=== PATIENT | male | born 1985 | race Caucasian/White ===

== ENCOUNTER 2020-04-16 21:47 | Inpatient (IN) | payer OTHER, SELFPAY ==
[2020-04-16 21:49] VITALS: BP 134/97; PULSE 100; RESP 22; TEMP 35.8; O2SAT 97; BMI 28.1
--- NOTE | 2020-04-16 22:17 | ED_ITS ---
HPI - Abdominal Pain General Chief Complaint: Abdominal Pain Stated Complaint: Abdominal Pain Time Seen by Provider: 04/16/20 22:13 History of Present Illness HPI narrative: Patient is a 35-year-old male with a history of pancreatitis secondary to alcohol use. Presents today with having abdominal pain in the epigastric area after drinking alcohol. The pain is similar to previous bouts of pancreatitis. Not associated with any diarrhea. Positive nausea, vomiting. Pain is 8/10. Localized to that area no radiation. No fever no chills. No coughing or congestion upper respiratory symptoms. Patient from home. No NSAID use. Related Data Home Medications Medication Instructions Recorded Confirmed No Known Home Meds 04/16/20 04/16/20 Allergies Allergy/AdvReac Type Severity Reaction Status Date / Time No Known Allergies Allergy Verified 04/16/20 23:20 [No Known Allergies*] Review of Systems Review of Systems Constitutional: No Weight loss, No Fever, No Chills, No Night Sweats, No Fatigue, No Malaise ENT/Mouth: No Hearing loss, No Ear Pain, No Nasal Congestion, No Sinus Pain, No Hoarseness, No sore throat, No Rhinorrhea, No Swallowing Difficulty Eyes: No Eye Pain, No Swelling, No Redness, No Foreign Body, No Discharge, No Vision Changes Cardiovascular: No Chest Pain, No SOB, No Dyspnea on Exertion, No Orthopnea, No Edema, No Palpitations Respiratory: No Cough, No Sputum, No Wheezing, No Smoke Exposure, No Dyspnea Gastrointestinal: Positive Nausea, No Vomiting, No Diarrhea, No Constipation, positive abdominal Pain, No Hematochezia, No Melena Genitourinary: no irregular bleeding, No Dysuria, No Urinary Frequency, No Hematuria, No Urinary Incontinence, No Urgency, No Flank Pain, No Urinary Flow Changes, No Hesitancy Musculoskeletal: No joint pain, No Myalgias, No Joint Swelling Skin: No Skin Lesions, No rash Neuro: No Weakness, No Numbness, No Paresthesias, No Loss of Consciousness, No Dizziness, No Headache Psych: No Anxiety/Panic, No Depression, No SI/HI/AH/VH, No Social Issues, Heme/Lymph: No Bruising, No Bleeding,No Lymphadenopathy Endocrine: No Polyuria, No Polydipsia, No Temperature Intolerance Physical Exam Vital Signs: Vital Signs: Last Vital Signs Temp 96.4 F L 04/16/20 21:49 Pulse 61 04/17/20 00:51 Resp 24 H 04/17/20 00:51 BP 145/99 H 04/17/20 00:51 Pulse Ox 98 04/17/20 00:51 Body Mass Index 28.1 Appearance: Alert. Oriented X3. No acute distress. Eyes: Pupils equal, round and reactive to light. ENT: Pharynx normal. Neck: Normal inspection. Neck supple. No lymph nodes noted. No crepitus CVS: Normal heart rate and rhythm. Pulses normal. Normal S1 and S2 Respiratory: No respiratory distress. Breath sounds normal. No Wheezing. No rales Abdomen: Soft and mild epigastric tenderness no rebound no guarding. No rigidity. No distention. good BS x4 Skin: Skin warm and dry. Normal skin color. Normal skin turgor. Extremities: No lower extremity edema. Neurovascular intact to all extremities. No Lacerations. No Rash Neuro: Oriented X 3. No motor deficit. No sensory deficit. Moving all extermities. No slurred speech MDM - Abdominal Pain MDM Narrative Medical decision making narrative: Patient is 35 years old have history of alcohol induced pancreatitis. Drank alcohol yesterday had abdominal pain. CT scan consistent with having pancreatitis. Patient's lipase is over 400. Given pain medication with moderate relief. Patient did not feel comfortable going home due to the pain. Will admit for further evaluation IV hydration currently in stable condition Differential Diagnosis Differential diagnosis: Likely abdominal pain, aortic dissection, bowel perforation, gastroenteritis and pancreatitis Medical Records Attestation: I reviewed the patient's medical records. Lab Data Attestation: I reviewed the patient's lab results. Result diagrams: 04/16/20 23:09 04/16/20 23:09 Labs: Lab Results 04/16/20 04/16/20 04/16/20 Range/Units 23:09 23:09 23:09 WBC 9.5 (4.8-10.8) X10*3/uL RBC 4.86 (4.60-5.80) X10*6/uL Hgb 15.8 (14.0-18.0) g/dl Hct 46.0 (42-52) % MCV 94.7 (80-98) fL MCH 32.5 (27.0-33.0) pg MCHC 34.3 (31.0-36.0) g/dl RDW 13.2 (11.0-16.0) % Plt Count 277 (160-400) X10*3/uL MPV 9.2 L (9.4-12.4) fL Immature Gran % (Auto) 0.2 (0.0-0.4) % Neut % (Auto) 77.9 H (45-73) % Lymph % (Auto) 12.8 L (20-40) % [place] % (Auto) 7.4 (2-11) % Eos % (Auto) 1.3 (0-4) % Baso % (Auto) 0.4 (0-2) % Lymph # (Auto) 1.2 (1.2-4.9) X10*3/uL [place] # (Auto) 0.7 (0.1-1.2) X10*3/uL Eos # (Auto) 0.1 (0.0-0.4) X10*3/uL Baso # (Auto) 0.0 (0.0-0.2) X10*3/uL Abs Immat Gran (auto) 0.02 (0.00-0.03) X10*3/uL Absolute Neuts (auto) 7.4 (2.0-8.3) X10*3/uL Absolute Nucleated RBC 0.000 (0.0-0.012) X10*3/uL Nucleated RBC % (auto) 0.0 (0.0-0.2) /100WBC Sodium 139 (135-145) mmol/L Potassium 3.4 (3.3-5.1) mmol/l Chloride 99 (96-108) mmol/L Carbon Dioxide 23 (22-29) mmol/L Anion Gap 20 (12-20) BUN 9 (9-16) mg/dL Creatinine 1.17 (0.5-1.4) mg/dL Estim Creat Clear Calc 88.4 Estimated GFR > 60 Random Glucose 134 H (60-115) mg/dL Calcium 9.2 (8.4-10.2) mg/dL Magnesium (1.6-2.6) mg/dL Total Bilirubin 2.0 H (0.0-1.0) mg/dL Direct Bilirubin 1.0 H (0.0-0.5) mg/dL AST 38 H (5-37) U/L ALT 40 (0-40) U/L Alkaline Phosphatase 143 H (39-117) U/L Total Protein 7.5 (6.5-8.0) g/dL Albumin 4.5 (3.5-5.0) g/dL Lipase 438 H (8-78) U/L Ethyl Alcohol < 10 mg/dL 04/16/20 Range/Units 23:09 WBC (4.8-10.8) X10*3/uL RBC (4.60-5.80) X10*6/uL Hgb (14.0-18.0) g/dl Hct (42-52) % MCV (80-98) fL MCH (27.0-33.0) pg MCHC (31.0-36.0) g/dl RDW (11.0-16.0) % Plt Count (160-400) X10*3/uL MPV (9.4-12.4) fL Immature Gran % (Auto) (0.0-0.4) % Neut % (Auto) (45-73) % Lymph % (Auto) (20-40) % [place] % (Auto) (2-11) % Eos % (Auto) (0-4) % Baso % (Auto) (0-2) % Lymph # (Auto) (1.2-4.9) X10*3/uL [place] # (Auto) (0.1-1.2) X10*3/uL Eos # (Auto) (0.0-0.4) X10*3/uL Baso # (Auto) (0.0-0.2) X10*3/uL Abs Immat Gran (auto) (0.00-0.03) X10*3/uL Absolute Neuts (auto) (2.0-8.3) X10*3/uL Absolute Nucleated RBC (0.0-0.012) X10*3/uL Nucleated RBC % (auto) (0.0-0.2) /100WBC Sodium (135-145) mmol/L Potassium (3.3-5.1) mmol/l Chloride (96-108) mmol/L Carbon Dioxide (22-29) mmol/L Anion Gap (12-20) BUN (9-16) mg/dL Creatinine (0.5-1.4) mg/dL Estim Creat Clear Calc Estimated GFR Random Glucose (60-115) mg/dL Calcium 9.3 (8.4-10.2) mg/dL Magnesium 1.8 (1.6-2.6) mg/dL Total Bilirubin (0.0-1.0) mg/dL Direct Bilirubin (0.0-0.5) mg/dL AST (5-37) U/L ALT (0-40) U/L Alkaline Phosphatase (39-117) U/L Total Protein (6.5-8.0) g/dL Albumin (3.5-5.0) g/dL Lipase (8-78) U/L Ethyl Alcohol mg/dL Discharge Plan Discharge Clinical Impression: Pancreatitis Patient Disposition: Admitted As Inpatient Prescriptions: No Action No Known Home Meds RF: 0 PMFSH Past Medical History Attestation statement: The following information was validated with the patient. Medical History Pancreatitis Social History Social History Advance Directives: No Advance Directives Information Provided: No
[2020-04-16 23:15] LABS: Basophils Percent Auto 0.4 % (0-2); Eosinophils Absolute Auto 0.1 X10*3/uL (0.0-0.4); Eosinophils Percent Auto 1.3 % (0-4); Hemoglobin 15.8 g/dl (14.0-18.0); Imm Gran Abs Auto 0.02 X10*3/uL (0.00-0.03); Imm Gran Pct Auto 0.2 % (0.0-0.4); Lymphocytes Absolute Auto 1.2 X10*3/uL (1.2-4.9); Lymphocytes Percent Auto 12.8 % (20-40); MANUAL DIFF FLAG NO; Mean Corpuscular HGB Conc 34.3 g/dl (31.0-36.0); Mean Corpuscular Hemoglobin 32.5 pg (27.0-33.0); Mean Corpuscular Volume 94.7 fL (80-98); Mean Platelet Volume 9.2 fL (9.4-12.4); Monocytes Absolute Auto 0.7 X10*3/uL (0.1-1.2); Monocytes Percent Auto 7.4 % (2-11); Neutrophils Absolute Auto 7.4 X10*3/uL (2.0-8.3); Neutrophils Percent Auto 77.9 % (45-73); Platelet Count 277 X10*3/uL (160-400); Red Blood Count 4.86 X10*6/uL (4.60-5.80); Red Cell Distribution Width 13.2 % (11.0-16.0); White Blood Count 9.5 X10*3/uL (4.8-10.8)
[2020-04-16] MEDS: ondansetron HCL 4 MG/2 ML VIAL IVPUSH (23:19)
[2020-04-16] MEDS: 0.9 % Sodium Chloride 1,000 ML 999 ML IVCONT (23:19)
[2020-04-16] MEDS: HYDROmorphone HCl 0.5 MG/0.5 ML SYRINGE IVPUSH (23:19)
[2020-04-16 23:40] LABS: Ethanol < 10 mg/dL
[2020-04-16 23:43] LABS: Calcium 9.3 mg/dL (8.4-10.2); Magnesium 1.8 mg/dL (1.6-2.6)
[2020-04-17] VITALS (14 sets, daily range): BP systolic 130–153; BP diastolic 81–99; PULSE 58–76; RESP 16–24; TEMP 36.2–37.1; O2SAT 73–99
--- NOTE | 2020-04-17 | CT_ITS ---
EXAMINATION: CT ABDOMEN AND PELVIS WITH CONTRAST CLINICAL INFORMATION: Epigastric pain COMPARISON: 11/27/2019 TECHNIQUE: Multidetector volumetric images were obtained from the superior aspect of the liver through the pubic symphysis following administration 85 mL of Omnipaque 350 intravenous contrast. Sagittal and coronal reformatted images were obtained on the technologist's workstation. Oral contrast: No This CT examination was performed using dose optimization techniques as appropriate, variously including the following: *Automated exposure control *Adjustment of mA and/or kV according to patient size (this includes techniques or standardized protocols for targeted exams where dose is matched to indication/reason for exam; i.e. extremities or head) *Use of iterative reconstruction technique DLP: 542 mGy-cm FINDINGS: LUNG BASES: The visualized lung bases demonstrate mild subsegmental atelectasis. LIVER, GALLBLADDER, AND BILIARY TREE: The liver demonstrates hypoattenuation suspicious for steatosis. No focal hepatic lesion or biliary ductal dilatation is present. The gallbladder is unremarkable with no evidence of radiopaque gallstones, gallbladder wall thickening, or obvious pericholecystic inflammatory changes. PANCREAS: There is mild to moderate peripancreatic stranding suspicious for pancreatitis. Parenchymal enhancement appears homogeneous. SPLEEN: Unremarkable. ADRENAL GLANDS: Unremarkable. KIDNEYS AND URETERS: The kidneys are normal in size, shape, and attenuation. No hydronephrosis, hydroureter, or obstructing calculi seen. No perinephric stranding. BLADDER: Unremarkable. GASTROINTESTINAL TRACT: The small and large bowel are unremarkable. The appendix is unremarkable. No free fluid or free air is seen. ABDOMINAL WALL: No significant hernia is appreciated. LYMPH NODES: Normal. VASCULAR: Unremarkable. PELVIC VISCERA: Unremarkable. OSSEOUS STRUCTURES: Unremarkable. CT/CT abdomen pelvis w con IMPRESSION: 1. Mild to moderate peripancreatic stranding suspicious for pancreatitis. 2. Hepatic steatosis.
[2020-04-17 00:03] LABS: Alanine Aminotransferase 40 U/L (0-40); Albumin Level 4.5 g/dL (3.5-5.0); Alkaline Phosphatase 143 U/L (39-117); Anion Gap 20 (12-20); Aspartate Amino Transferase 38 U/L (5-37); Blood Urea Nitrogen 9 mg/dL (9-16); Calcium 9.2 mg/dL (8.4-10.2); Carbon Dioxide 23 mmol/L (22-29); Chloride 99 mmol/L (96-108); Creatinine Clr Calc Pharmacy 88.4; Estimated Glomerular Filt Rate > 60; Glucose Random 134 mg/dL (60-115); Lipase 438 U/L (8-78); Potassium 3.4 mmol/l (3.3-5.1); Sodium 139 mmol/L (135-145); Total Protein 7.5 g/dL (6.5-8.0)
[2020-04-17] MEDS: iohexoL 350 MG/ML 100 ML INFUS..BTL 85 ML IV (00:37)
[2020-04-17] MEDS: HYDROmorphone HCl 1 MG/ML SYRINGE IVPUSH ×4 (00:51→20:55)
[2020-04-17 01:42] LABS: Appearance Urine CLEAR; Color Urine YELLOW; Glucose Urine UA NEG (NEG); Leukocyte Esterase Urine NEG (NEG); Nitrite Urine NEG (NEG); PH 6.5 (5.0-8.0); Specific Gravity - Urine <= 1.005 (1.005-1.025); Urine Blood 2+ (NEG); Urine Ketones >=80 MG/DL (NEG); Urine Protein NEG (NEG-TRACE)
[2020-04-17 01:51] LABS: Squamous Epithelial Cell Urine 3+ /LPF
[2020-04-17] MEDS: Lactated Ringers 1,000 ML 200 ML IVCONT ×2 (02:59→07:51)
[2020-04-17] MEDS: Morphine Sulfate 4 MG/ML CARTRIDGE IVPUSH (03:06)
--- NOTE | 2020-04-17 04:41 | PM.IMHP ---
History of Present Illness Date of Service: 04/17/20 Chief Complaint: abdominal pain this is a 35-year-old male with past medical history of alcohol abuse who presents to the hospital with abdominal pain. Patient describes the pain as epigastric, radiating to the back, 10/10, sharp, relieved by pain medications received in the ED, associated with nausea with no vomiting, movement worsens the abdominal pain. The pain started the day prior to presentation, and worsened over the next 24 hours. Patient reports prior episode. He has a history of heavy alcohol use. He has no urinary symptoms, no lower extremity edema. No chest pain, shortness of breath, no headache, change in vision. On arrival to the ED hemodynamically stable with Some elevated blood pressure. Labs are significant for total bili of 2.0, AST of 38, alk-phos of 143, lipase of 438. Urine negative, abdominal CT is showing [id number] peripancreatic stranding suspicious for pancreatitis. Past medical history: Alcohol abuse, tobacco use disorder surgical history: Denies Family history: Alcoholism Social history: Comes from home, smokes about 1 pack every 2 days, drinks significant amount of alcohol daily( does not quantify) , denies use of drugs Review of Systems Review of Systems: Yes all other systems are reviewed and are negative [facility] Medical History (Updated 04/17/20 @ 04:46 by David Cordova MD) Pancreatitis Social History Household Members: Family Housing: Apartment Do you presently have visiting nurse or other home services: No Alcohol intake: current Alcohol type: hard liquor Smoking Status: Current every day smoker Tobacco Type: Cigarette Cigarettes Per Day: 10 Years Smoked: 15 Smoked in Last 30 Days: Yes Patient Interested in Nicotine Replacement: Yes Patient Given Instructions on How to Stop Smoking: Yes Date Education Initiated: 04/17/20 Use of substances other than those prescribed or required for medical reasons: No Have you been hit, kicked, punched, or otherwise hurt by someone within the past year? If so, by whom?: No Do you feel safe in your current relationship?: No Is there a partner from a previous relationship who is making you feel unsafe now?: No Are you made to feel afraid or neglected: No Advance Directives: No Advance Directives Information Provided: No Advance Directives on File: No Do you have thoughts of harming others: None Do you have a plan to hurt others: No Plan Recently lost weight without trying: No Meds Allergies Allergy/AdvReac Type Severity Reaction Status Date / Time No Known Allergies Allergy Verified 04/16/20 23:20 [No Known Allergies*] Home Medications Medication Instructions Recorded Confirmed Type No Known Home Meds 04/16/20 04/16/20 History Physical Exam Vital Signs and Narrative: Vital Signs: Last Vital Signs Temp 98.8 F 04/17/20 03:46 Pulse 58 04/17/20 03:46 Resp 16 04/17/20 03:46 BP 146/94 H 04/17/20 03:46 Pulse Ox 97 04/17/20 03:46 Body Mass Index 28.1 Const: General: cooperative and no acute distress Orientation/consciousness: patient oriented x3 Eyes: General: appearance normal, both eyes and all related structures Pupils: Equal, round and reactive pupils present Resp: Effort & Inspection: normal respiratory effort and able to speak in complete sentences Auscultation: clear to auscultation bilaterally Cardio: Rate: regular rate Rhythm: regular rhythm GI: Other: epigastric abdominal tenderness, no rebound, no guarding Palpation (GI): Soft to palpation Auscultation: normal bowel sounds Skin: General skin exam: no rashes or lesions noted Neuro: General: patient oriented x3 Cranial nerves: Yes Equal, round and reactive pupils present Cognition (Neuro): normal cognition Extrem: General: Yes normal to inspection and Yes no pedal edema Results Labs CBC and Chem 7: 04/16/20 23:09 04/16/20 23:09 Labs: Laboratory Results - last 24 hr 04/16/20 04/16/20 04/16/20 23:09 23:09 23:09 MCV 94.7 MCH 32.5 MCHC 34.3 RDW 13.2 Plt Count 277 MPV 9.2 L Immature Gran % (Auto) 0.2 Neut % (Auto) 77.9 H Lymph % (Auto) 12.8 L [place] % (Auto) 7.4 Eos % (Auto) 1.3 Baso % (Auto) 0.4 Lymph # (Auto) 1.2 [place] # (Auto) 0.7 Eos # (Auto) 0.1 Baso # (Auto) 0.0 Abs Immat Gran (auto) 0.02 Absolute Neuts (auto) 7.4 Absolute Nucleated RBC 0.000 Nucleated RBC % (auto) 0.0 Anion Gap 20 Estim Creat Clear Calc 88.4 Estimated GFR > 60 Random Glucose 134 H Calcium 9.2 Magnesium Total Bilirubin 2.0 H Direct Bilirubin 1.0 H AST 38 H ALT 40 Alkaline Phosphatase 143 H Total Protein 7.5 Albumin 4.5 Lipase 438 H Urine Color Urine Appearance Urine pH Ur Specific [place] Urine Protein Urine Glucose (UA) Urine Ketones Urine Blood Urine Nitrite Ur Leukocyte Esterase Urine RBC Urine WBC Ur Squamous Epith Cells Urine Bacteria Ethyl Alcohol < 10 04/16/20 04/17/20 23:09 01:34 MCV MCH MCHC RDW Plt Count MPV Immature Gran % (Auto) Neut % (Auto) Lymph % (Auto) [place] % (Auto) Eos % (Auto) Baso % (Auto) Lymph # (Auto) [place] # (Auto) Eos # (Auto) Baso # (Auto) Abs Immat Gran (auto) Absolute Neuts (auto) Absolute Nucleated RBC Nucleated RBC % (auto) Anion Gap Estim Creat Clear Calc Estimated GFR Random Glucose Calcium 9.3 Magnesium 1.8 Total Bilirubin Direct Bilirubin AST ALT Alkaline Phosphatase Total Protein Albumin Lipase Urine Color YELLOW Urine Appearance CLEAR Urine pH 6.5 Ur Specific [place] <= 1.005 Urine Protein NEG Urine Glucose (UA) NEG Urine Ketones >=80 Urine Blood 2+ H Urine Nitrite NEG Ur Leukocyte Esterase NEG Urine RBC 1-4 Urine WBC 1-4 Ur Squamous Epith Cells 3+ Urine Bacteria NONE Ethyl Alcohol Imaging Radiologist's Impressions: Impressions Abdomen/Pelvis CT 04/17/20 00:00 IMPRESSION: 1. Mild to moderate peripancreatic stranding suspicious for pancreatitis. 2. Hepatic steatosis. Assessment and Plan (1) Pancreatitis: Qualifiers: Chronicity: acute Pancreatitis type: alcohol induced Acute pancreatitis complication: no infection or necrosis Qualified Code(s): K85.20 - Alcohol induced acute pancreatitis without necrosis or infection Status: Acute (2) Tobacco use disorder: Status: Acute (3) Alcohol abuse: Status: Acute this is a 35-year-old male with past medical history of alcohol abuse who presents to the hospital with abdominal pain found to have acute pancreatitis # acute pancreatitis - elevated lipase, CT abdomen showing acute pancreatitis, also typical abdominal pain - alcohol-induced plan: - Aggressive IV fluids, NPO - discussed extensively with patient need to abstain from alcohol as this could be fatal # alcohol abuse - potential for withdral - will start patient on phenobarb protocol, thiamine supplement, folic acid supplement # tobacco use disorder - will start him on nicotine patch DVT prophylaxis: Lovenox
[2020-04-17] MEDS: Enoxaparin Sodium 40 MG/0.4 ML SYRINGE SUBCUT (05:18)
[2020-04-17] MEDS: HYDROmorphone HCl 0.5 MG/0.5 ML SYRINGE IVPUSH (07:45)
[2020-04-17] MEDS: ondansetron HCL 4 MG/2 ML VIAL IVPUSH (07:49)
[2020-04-17] MEDS: Nicotine 21 MG PATCH.TD24 TRANSDERMA (07:52)
[2020-04-17] MEDS: Folic Acid 1 MG TABLET PO (07:53)
[2020-04-17] MEDS: Thiamine HCL 100 MG TABLET PO (07:53)
--- NOTE | 2020-04-17 10:04 | MHC.CM.PN ---
PATIENT IS INDEPENDENT WITH HIS ADLS. HE DOES NOT HAVE A PCP, NOR DOES HE WANT TO SECURE ONE. HE IS NOT INTERESTED IN CARE TEAM CONSULT, AND REPORTS I HAVE BEEN DOWN THIS ROAD BEFORE. I KNOW HOW IT WORKS . PATIENT MADE AWARE THAT CASE MANAGEMENT AVAILABLE AT ANYTIME DURING HIS STAY IF HE WOULD LIKE A PROVIDER LIST, CARE TEAM CONSULT, OR COMPLETION OF HCP DOCUMENTATION.
[2020-04-17 11:00] LABS: COVID-19 Test Negative (Negative)
[2020-04-17] MEDS: Lactated Ringers 1,000 ML 150 ML IVCONT ×2 (12:04→19:56)
[2020-04-17 12:41] LABS: Magnesium 1.7 mg/dL (1.6-2.6)
[2020-04-17 12:44] LABS: Alanine Aminotransferase 27 U/L (0-40); Albumin Level 3.7 g/dL (3.5-5.0); Alkaline Phosphatase 112 U/L (39-117); Aspartate Amino Transferase 25 U/L (5-37); Bilirubin Direct 0.6 mg/dL (0.0-0.5); Bilirubin Total 1.3 mg/dL (0.0-1.0); Total Protein 6.4 g/dL (6.5-8.0)
[2020-04-17 12:45] LABS: Anion Gap 18 (12-20); Blood Urea Nitrogen 6 mg/dL (9-16); Calcium 8.3 mg/dL (8.4-10.2); Carbon Dioxide 22 mmol/L (22-29); Chloride 102 mmol/L (96-108); Creatinine Clr Calc Pharmacy 123.1; Estimated Glomerular Filt Rate > 60; Glucose Random 91 mg/dL (60-115); Potassium 3.3 mmol/l (3.3-5.1); Sodium 139 mmol/L (135-145)
--- NOTE | 2020-04-17 16:13 | MHC.CM.PN ---
PER PHYSICIAN ROUNDS, PATIENT STILL WITH HIGH PAIN LEVELS. CURRENTLY ON IV DILAUDID. PLAN IS FOR DISCHARGE BY FRIDAY
--- NOTE | 2020-04-17 16:28 | HO.PM.IMPN ---
Subjective Subjective Date of Service: 04/17/20 Interval History: patient seen in follow-up of acute alcoholic pancreatitis patient complaining of persistent epigastric pain with radiation to back, does not feel hungry no fever, no chills, no other acute issues overnight. Review of Systems General no headache no dizziness no fever chills. CVS no chest pain, no palpitation. Respiratory no cough, no respiratory distress. Gastrointestinal no nausea, no vomiting, epigastric abdominal pain Physical Exam Vital Signs: Vital Signs: Last Vital Signs Temp 97.5 F 04/17/20 16:00 Pulse 59 04/17/20 16:00 Resp 19 04/17/20 16:00 BP 150/92 H 04/17/20 16:00 Pulse Ox 99 04/17/20 11:36 Body Mass Index 28.1 General no acute distress. Neck is supple no JVD. CVS regular rate rhythm, Respiratory lungs clear to auscultation, no respiratory distress. Gastrointestinal abdomen soft, epigastric tenderness with palpation, bowel sounds audible, no guarding , no rigidity. Extremities no clubbing cyanosis or edema. Neuro nonfocal Skin no rash Objective Data Current Medications Generic Name Dose Route Start Last Admin Trade Name Freq PRN Reason Stop Dose Admin Acetaminophen 650 mg 04/17/20 02:05 Acetaminophen 325 Mg Tablet PO Q6H PRN Pain, Mild (Pain Scale 1-3) Docusate Sodium 100 mg 04/17/20 02:05 Docusate Sodium 100 Mg Capsule PO DAILY PRN Constipation Enoxaparin Sodium 40 mg 04/17/20 06:00 04/17/20 05:18 Enoxaparin Sodium 40 Mg/0.4 Ml Syringe SUBCUT 40 mg Q24H NICKOLAS Administration Folic Acid 1 mg 04/17/20 09:00 04/17/20 07:53 Folic Acid 1 Mg Tablet PO 1 mg DAILY NICKOLAS Administration Hydromorphone HCl 1 mg 04/17/20 11:54 04/17/20 11:59 Hydromorphone Hcl 1 Mg/Ml Syringe IVPUSH 1 mg Q4H PRN Administration Pain, Severe (Pain Scale 7-10) Lactated Ringer's 1,000 mls @ 150 mls/hr 04/17/20 02:15 04/17/20 12:04 Lr IVCONT 150 mls/hr .[id number] NICKOLAS Administration Nicotine 21 mg 04/17/20 09:00 04/17/20 07:52 Nicotine 21 Mg Patch.Td24 TRANSDERMA 21 mg DAILY NICKOLAS Administration Ondansetron HCl 4 mg 04/17/20 02:05 04/17/20 07:49 Ondansetron Hcl 4 Mg/2 Ml Vial IVPUSH 4 mg Q8H PRN Administration Nausea and Vomiting Sodium Chloride 3 ml 04/17/20 08:00 04/17/20 07:51 0.9 % Sodium Chloride Flush 3 Ml Syringe IVFLUSH Not Given QSHIFT NICKOLAS Thiamine HCl 100 mg 04/17/20 09:00 04/17/20 07:53 Thiamine Hcl 100 Mg Tablet PO 100 mg DAILY NICKOLAS Administration Labs CBC & Chem 7: 04/16/20 23:09 04/17/20 12:02 Assessment and Plan (1) Pancreatitis: Status: Acute (2) Alcohol abuse: Status: Acute (3) Tobacco use disorder: Status: Acute Assessment and Plan: this is a 35-year-old male with past medical history of alcohol abuse who presents to the hospital with abdominal pain found to have acute pancreatitis # acute alcoholic pancreatitis - recurrent episode of alcoholic pancreatitis, persistent epigastric pain, will continue NPO, continue IV Dilaudid adjusted dose, DC IV morphine , continue supportive care, IV fluids strongly advised to abstain from alcohol, LFTs trending down, will follow clinical course and electrolytes closely. # alcohol abuse - No symptoms of withdrawal, continue CIWA , thiamine and folic acid, obtain care team consult, alcohol cessation advised # tobacco use disorder - on nicotine patch, smoking cessation advised # history of Polysubstance abuse. DVT prophylaxis: Lovenox
[2020-04-18] VITALS (7 sets, daily range): BP systolic 114–156; BP diastolic 70–99; PULSE 62–80; RESP 18–20; TEMP 36.5–36.8; O2SAT 96–99
[2020-04-18] MEDS: HYDROmorphone HCl 1 MG/ML SYRINGE IVPUSH ×3 (01:01→09:04)
[2020-04-18] MEDS: Lactated Ringers 1,000 ML 150 ML IVCONT ×2 (02:53→09:08)
[2020-04-18] MEDS: Enoxaparin Sodium 40 MG/0.4 ML SYRINGE SUBCUT (05:04)
[2020-04-18 06:30] LABS: MANUAL DIFF FLAG NO
[2020-04-18 06:48] LABS: Basophils Percent Auto 0.5 % (0-2); Eosinophils Absolute Auto 0.3 X10*3/uL (0.0-0.4); Eosinophils Percent Auto 3.5 % (0-4); Hematocrit 40.5 % (42-52); Hemoglobin 13.5 g/dl (14.0-18.0); Imm Gran Abs Auto 0.03 X10*3/uL (0.00-0.03); Imm Gran Pct Auto 0.4 % (0.0-0.4); Lymphocytes Absolute Auto 1.8 X10*3/uL (1.2-4.9); Lymphocytes Percent Auto 21.7 % (20-40); Mean Corpuscular HGB Conc 33.3 g/dl (31.0-36.0); Mean Corpuscular Hemoglobin 32.1 pg (27.0-33.0); Mean Corpuscular Volume 96.2 fL (80-98); Mean Platelet Volume 9.8 fL (9.4-12.4); Monocytes Absolute Auto 0.6 X10*3/uL (0.1-1.2); Monocytes Percent Auto 7.4 % (2-11); Neutrophils Absolute Auto 5.6 X10*3/uL (2.0-8.3); Neutrophils Percent Auto 66.5 % (45-73); Platelet Count 261 X10*3/uL (160-400); Red Blood Count 4.21 X10*6/uL (4.60-5.80); Red Cell Distribution Width 12.8 % (11.0-16.0); White Blood Count 8.4 X10*3/uL (4.8-10.8)
[2020-04-18 07:08] LABS: Anion Gap 16 (12-20); Blood Urea Nitrogen 5 mg/dL (9-16); Carbon Dioxide 22 mmol/L (22-29); Chloride 103 mmol/L (96-108); Creatinine Clr Calc Pharmacy 130.9; Estimated Glomerular Filt Rate > 60; Glucose Random 66 mg/dL (60-115); Potassium 3.2 mmol/l (3.3-5.1); Sodium 138 mmol/L (135-145)
[2020-04-18 07:13] LABS: Alanine Aminotransferase 20 U/L (0-40); Albumin Level 3.6 g/dL (3.5-5.0); Alkaline Phosphatase 101 U/L (39-117); Aspartate Amino Transferase 21 U/L (5-37); Bilirubin Direct 0.5 mg/dL (0.0-0.5)
[2020-04-18 07:37] LABS: Lipase 110 U/L (8-78)
[2020-04-18] MEDS: Thiamine HCL 100 MG TABLET PO (08:12)
[2020-04-18] MEDS: Nicotine 21 MG PATCH.TD24 TRANSDERMA (08:12)
[2020-04-18] MEDS: Folic Acid 1 MG TABLET PO (08:12)
--- NOTE | 2020-04-18 09:42 | MHC.CARE ---
Recovery Support note: Patient is a 35 year old Gabonese speaking male who presented to [facility] ED due to abdominal pain and was medically admitted for pancreatitis related to his alcohol use. This marketing copywriter offered patient the opportunity to discuss his alcohol use and patient declined. Patient reports he has a good handle on his alcohol use and that he will prevent this situation from happening again. Offered patient resources and patient declined. Informed patient that there is help and support available if he finds reducing his alcohol consumption to be more difficult than he anticipates. Patient will reach out to RN if he changes his mind and decides he is interested in discussing alcohol use and recovery resources. Discussed case with patient's RN, Paige.
--- NOTE | 2020-04-18 12:33 | HO.PM.IMPN ---
Subjective Subjective Date of Service: 04/18/20 Interval History: patient seen in follow-up of acute pancreatitis, patient admits that his abdominal pain is better feels hungry wishes to try some food, denies nausea vomiting no diarrhea no other acute issues overnight. Review of Systems General no headache, no dizziness, no fever, chills. CVS no chest pain, no palpitation. Respiratory no cough, no sputum production no respiratory distress. Gastrointestinal no nausea no vomiting, Epigastric pain improving Physical Exam Vital Signs: Vital Signs: Last Vital Signs Temp 97.8 F 04/18/20 11:47 Pulse 64 04/18/20 11:47 Resp 20 04/18/20 11:47 BP 156/98 H 04/18/20 11:47 Pulse Ox 99 04/18/20 11:47 Body Mass Index 28.1 General patient resting comfortably in no acute distress. Neck is supple no JVD. CVS regular rate rhythm, Respiratory lungs clear to auscultation, no respiratory distress, no wheeze, no rhonchi. Gastrointestinal abdomen soft, mild epigastric discomfort with deep palpation, bowel sounds audible, no guarding , no rigidity. Extremities no clubbing cyanosis or edema. Neuro nonfocal Skin no rash Objective Data Current Medications Generic Name Dose Route Start Last Admin Trade Name Freq PRN Reason Stop Dose Admin Acetaminophen 650 mg 04/17/20 02:05 Acetaminophen 325 Mg Tablet PO Q6H PRN Pain, Mild (Pain Scale 1-3) Docusate Sodium 100 mg 04/17/20 02:05 Docusate Sodium 100 Mg Capsule PO DAILY PRN Constipation Enoxaparin Sodium 40 mg 04/17/20 06:00 04/18/20 05:04 Enoxaparin Sodium 40 Mg/0.4 Ml Syringe SUBCUT 40 mg Q24H NICKOLAS Administration Folic Acid 1 mg 04/17/20 09:00 04/18/20 08:12 Folic Acid 1 Mg Tablet PO 1 mg DAILY NICKOLAS Administration Hydromorphone HCl 0.5 mg 04/18/20 11:01 Hydromorphone Hcl 0.5 Mg/0.5 Ml Syringe IVPUSH Q4H PRN Pain, Severe (Pain Scale 7-10) Lactated Ringer's 1,000 mls @ 125 mls/hr 04/17/20 02:15 04/18/20 09:08 Lr IVCONT 150 mls/hr .Q8H NICKOLAS Administration Nicotine 21 mg 04/17/20 09:00 04/18/20 08:12 Nicotine 21 Mg Patch.Td24 TRANSDERMA 21 mg DAILY NICKOLAS Administration Ondansetron HCl 4 mg 04/17/20 02:05 04/17/20 07:49 Ondansetron Hcl 4 Mg/2 Ml Vial IVPUSH 4 mg Q8H PRN Administration Nausea and Vomiting Sodium Chloride 3 ml 04/17/20 08:00 04/18/20 08:13 0.9 % Sodium Chloride Flush 3 Ml Syringe IVFLUSH Not Given QSHIFT NICKOLAS Thiamine HCl 100 mg 04/17/20 09:00 04/18/20 08:12 Thiamine Hcl 100 Mg Tablet PO 100 mg DAILY NICKOLAS Administration Labs CBC & Chem 7: 04/18/20 06:12 04/18/20 06:12 Assessment and Plan (1) Tobacco use disorder: Status: Acute (2) Alcohol abuse: Status: Acute (3) Pancreatitis: Status: Acute Assessment and Plan: this is a 35-year-old male with past medical history of alcohol abuse who presents to the hospital with abdominal pain found to have acute pancreatitis # acute alcoholic pancreatitis - recurrent episode of alcoholic pancreatitis, persistent epigastric pain but improving, will is start clear liquid diet and decrease dose of IV Dilaudid and IV fluids strongly advised to abstain from alcohol, LFTs and lipase trending down, will follow clinical course and electrolytes closely. # Mild hypokalemia will replace and follow, calcium 8 # alcohol abuse - No symptoms of withdrawal, continue CIWA , thiamine and folic acid, obtain care team consult, alcohol cessation advised # tobacco use disorder - on nicotine patch, smoking cessation advised # history of Polysubstance abuse. patient denies current use of cocaine. DVT prophylaxis: Lovenox
[2020-04-18] MEDS: Potassium Chloride ER 20 MEQ TAB.ER.PRT 40 MEQ PO (13:26)
[2020-04-18] MEDS: HYDROmorphone HCl 0.5 MG/0.5 ML SYRINGE IVPUSH ×3 (13:27→21:47)
--- NOTE | 2020-04-18 14:49 | MHC.CM.PN ---
PER PHYSICIAN ROUNDS, ATTEMPTING CLEAR LIQUIDS TODAY. PLAN IS FOR DISCHARGE BY FRIDAY 04/20
[2020-04-18] MEDS: Lactated Ringers 1,000 ML 125 ML IVCONT ×2 (16:13→23:10)
[2020-04-19] MEDS: HYDROmorphone HCl 0.5 MG/0.5 ML SYRINGE IVPUSH ×6 (01:47→20:48)
[2020-04-19 03:42] VITALS: BP 142/94; PULSE 70; RESP 20; TEMP 36.4; O2SAT 98
[2020-04-19] MEDS: Enoxaparin Sodium 40 MG/0.4 ML SYRINGE SUBCUT (05:55)
[2020-04-19] MEDS: Lactated Ringers 1,000 ML 125 ML IVCONT ×3 (05:59→20:48)
[2020-04-19 07:34] VITALS: BP 138/90; PULSE 68; RESP 18; TEMP 36.7; O2SAT 98
[2020-04-19 08:09] LABS: Anion Gap 17 (12-20); Blood Urea Nitrogen 4 mg/dL (9-16); Calcium 8.2 mg/dL (8.4-10.2); Carbon Dioxide 24 mmol/L (22-29); Chloride 100 mmol/L (96-108); Creatinine Clr Calc Pharmacy 127.7; Estimated Glomerular Filt Rate > 60; Glucose Random 84 mg/dL (60-115); Potassium 3.2 mmol/l (3.3-5.1); Sodium 138 mmol/L (135-145)
[2020-04-19] MEDS: Thiamine HCL 100 MG TABLET PO (08:13)
[2020-04-19] MEDS: Nicotine 21 MG PATCH.TD24 TRANSDERMA (08:13)
[2020-04-19] MEDS: Folic Acid 1 MG TABLET PO (08:13)
--- NOTE | 2020-04-19 10:19 | HO.PM.IMPN ---
Subjective Subjective Date of Service: 04/19/20 Interval History: Seen in follow-up for acute alcoholic pancreatitis, he rates pain at 8 to 9/10 and maybe agravated by food Review of Systems General no headache, no dizziness, no fever, chills. CVS no chest pain, no palpitation. Respiratory no cough, no sputum production no respiratory distress. Gastrointestinal no nausea no vomiting, Epigastric pain improving Physical Exam Vital Signs: Vital Signs: Last Vital Signs Temp 98.0 F 04/19/20 07:34 Pulse 68 04/19/20 07:34 Resp 18 04/19/20 07:34 BP 138/90 H 04/19/20 07:34 Pulse Ox 98 04/19/20 07:34 Body Mass Index 28.1 General: AO X 3, no acute distress Resp: CTA bilateral CVS: S1,S2,RRR GI: +BS, mild epigastric tenderness, no distention Skin: No rash Neuro: motor grossly intact Psych: appropriate affect Objective Data Current Medications Generic Name Dose Route Start Last Admin Trade Name Freq PRN Reason Stop Dose Admin Acetaminophen 650 mg 04/17/20 02:05 Acetaminophen 325 Mg Tablet PO Q6H PRN Pain, Mild (Pain Scale 1-3) Docusate Sodium 100 mg 04/17/20 02:05 Docusate Sodium 100 Mg Capsule PO DAILY PRN Constipation Enoxaparin Sodium 40 mg 04/17/20 06:00 04/19/20 05:55 Enoxaparin Sodium 40 Mg/0.4 Ml Syringe SUBCUT 40 mg Q24H NICKOLAS Administration Folic Acid 1 mg 04/17/20 09:00 04/19/20 08:13 Folic Acid 1 Mg Tablet PO 1 mg DAILY NICKOLAS Administration Hydromorphone HCl 0.5 mg 04/18/20 11:01 04/19/20 09:57 Hydromorphone Hcl 0.5 Mg/0.5 Ml Syringe IVPUSH 0.5 mg Q4H PRN Administration Pain, Severe (Pain Scale 7-10) Lactated Ringer's 1,000 mls @ 125 mls/hr 04/17/20 02:15 04/19/20 05:59 Lr IVCONT 125 mls/hr .Q8H NICKOLAS Administration Nicotine 21 mg 04/17/20 09:00 04/19/20 08:13 Nicotine 21 Mg Patch.Td24 TRANSDERMA 21 mg DAILY NICKOLAS Administration Ondansetron HCl 4 mg 04/17/20 02:05 04/17/20 07:49 Ondansetron Hcl 4 Mg/2 Ml Vial IVPUSH 4 mg Q8H PRN Administration Nausea and Vomiting Sodium Chloride 3 ml 04/17/20 08:00 04/19/20 08:13 0.9 % Sodium Chloride Flush 3 Ml Syringe IVFLUSH Not Given QSHIFT NICKOLAS Thiamine HCl 100 mg 04/17/20 09:00 04/19/20 08:13 Thiamine Hcl 100 Mg Tablet PO 100 mg DAILY NICKOLAS Administration Labs CBC & Chem 7: 04/18/20 06:12 04/19/20 06:48 Assessment and Plan (1) Tobacco use disorder: Status: Acute (2) Alcohol abuse: Status: Acute (3) Pancreatitis: Status: Acute Assessment and Plan: 35-year-old male with past medical history of alcohol abuse admited d/t acute alcoholic pancreatitis. # acute alcoholic pancreatitis, pesistent moderate to severe pain. -continue liquid diet -Adjust pain med -Advised to stop drinking altogether -monitor lipase and LFTS # Mild hypokalemia will replace and follow, calcium 8 # alcohol dependence - No symptoms of withdrawal, continue CIWA , thiamine and folic acid, obtain care team consult, alcohol cessation advised # tobacco use disorder - on nicotine patch, smoking cessation advised # history of Polysubstance abuse. patient denies current use of cocaine. DVT prophylaxis: Lovenox
[2020-04-19] MEDS: Potassium Chloride Packet 20 MEQ PACKET 40 MEQ PO (10:54)
[2020-04-19 11:11] VITALS: BP 145/96; PULSE 62; RESP 17; TEMP 36.5; O2SAT 97
[2020-04-19 11:36] LABS: Lipase 47 U/L (8-78)
[2020-04-19 12:55] LABS: Anion Gap 14 (12-20); Carbon Dioxide 27 mmol/L (22-29); Chloride 100 mmol/L (96-108); Potassium 3.6 mmol/l (3.3-5.1); Sodium 137 mmol/L (135-145)
[2020-04-19 15:15] VITALS: BP 158/96; PULSE 62; RESP 18; TEMP 36.3; O2SAT 98
[2020-04-19 19:13] VITALS: BP 150/98; PULSE 68; RESP 17; TEMP 36.9; O2SAT 97
[2020-04-19 23:56] VITALS: BP 152/97; PULSE 72; RESP 16; TEMP 36.6; O2SAT 98
[2020-04-20] MEDS: HYDROmorphone HCl 0.5 MG/0.5 ML SYRINGE IVPUSH ×4 (01:11→13:42)
[2020-04-20 04:00] VITALS: BP 157/98; PULSE 68; RESP 18; TEMP 37.1; O2SAT 97
[2020-04-20] MEDS: Enoxaparin Sodium 40 MG/0.4 ML SYRINGE SUBCUT (05:30)
[2020-04-20 07:45] VITALS: BP 164/90; PULSE 77; RESP 19; TEMP 36.7; O2SAT 97
[2020-04-20] MEDS: Folic Acid 1 MG TABLET PO (09:26)
[2020-04-20] MEDS: Nicotine 21 MG PATCH.TD24 TRANSDERMA (09:26)
[2020-04-20] MEDS: Thiamine HCL 100 MG TABLET PO (09:26)
[2020-04-20] MEDS: 0.9 % Sodium Chloride Flush 3 ML SYRINGE IVFLUSH (09:27)
[2020-04-20 10:44] LABS: Anion Gap 12 (12-20); Blood Urea Nitrogen 3 mg/dL (9-16); Calcium 8.2 mg/dL (8.4-10.2); Carbon Dioxide 28 mmol/L (22-29); Chloride 101 mmol/L (96-108); Creatinine Clr Calc Pharmacy 117.5; Estimated Glomerular Filt Rate > 60; Glucose Random 121 mg/dL (60-115); Lipase 36 U/L (8-78); Potassium 3.2 mmol/l (3.3-5.1); Sodium 138 mmol/L (135-145)
[2020-04-20 11:47] VITALS: BP 141/91; PULSE 71; RESP 17; TEMP 36.6; O2SAT 98
--- NOTE | 2020-04-20 13:41 | MHC.CM.PN ---
NURSE PATIENT ACCESS REPRESENTATIVE NOTE ELECTRONIC MEDICAL RECORD REVIEWED , MET WITH PATIENT HE REPORTED FEELING BETTER AND IS AWARE THAT THE HOSPITALIST VEL ADVANCE HI DIET TODAY AND IF TOLERATED HE WILL BE DISCHARGED HOME . PATIENT OFFERED TO SPEAK WITH ANYONE FROM THE CARES TEAM AND HE AGAIN DECLINED , I ASKED HIM IF HE WANTED ANY INFORMATION ON AA MEETINGS AND SUPPORTS IN THE COMMUNITY AND AGAIN HE DECLINED , DISCHARGE PLAN HOME WITH NO SERVICES TRANSPORTATION SUCNCT1O TO SELF ARRANGE A ride pcp none and is not interested in seeking one
--- NOTE | 2020-04-20 14:01 | MHC.CM.PN ---
PATIENT IS DISCHARGED HOME - SELF CARE. RN AWARE OF PLAN.
--- NOTE | 2020-04-20 14:01 | PM.DS ---
DS: Providers Provider Date of admission: 04/17/20 01:24 Primary care physician: None Physician Consults: 04/17/20 16:39 Consult to Care Team Routine Comment: Reason for consultation: alcohol use DS: Diagnosis Discharge Diagnosis (1) Tobacco use disorder: Status: Acute (2) Alcohol abuse: Status: Acute (3) Pancreatitis: Status: Acute DS: Medications Discharge Medications Home Medications: Home Medications Medication Instructions Recorded Confirmed No Known Home Meds 04/16/20 04/16/20 DS: Summary Hospital Course Hospital Course: This basically has been binge drinking and prsensente with abdominal pain due to acute pancratitis. Lipase of 438. CT showed Mild to moderate peripancreatic stranding suspicious for pancreatitis.2. Hepatic steatosis. He was admitted treated with IV Pain med, hydrated and diet slowly advance from NPO to now regular. He is advised to stop drinking and seek help. Time Spent with Patient Time attestation: Total time spent providing and/or coordinating discharge services: Discharge coordination time: Greater than 30 minutes Physical Exam Vital Signs: Vital Signs: Last Vital Signs Temp 97.8 F 04/20/20 11:47 Pulse 71 04/20/20 11:47 Resp 17 04/20/20 11:47 BP 141/91 H 04/20/20 11:47 Pulse Ox 98 04/20/20 11:47 Body Mass Index 28.1 General: AO X 3, no acute distress Resp: CTA bilateral CVS: S1,S2,RRR GI: +BS, NT, no distention Skin: No rash Neuro: motor grossly intact Psych: appropriate affect Discharge Plan Discharge Anticipated Discharge Date/Time: 04/20/20 13:55 Patient Disposition: Home, Self-Care Referrals: Physician,None [Primary Care Provider] - Discharge Medications: No Action No Known Home Meds RF: 0 Discharge Orders: Discharge Order (Routine); Ordered 04/20/20 Ordered By: Jamin Mlapa Diet: advance to usual diet Activity on Discharge: As tolerated Visit Report Forms: Patient Portal Discharge page Care Plan Goals: prevent flare of pancreatis and hospitalization Health Concerns: alcohole dependency Plan of Treatment: avoid alcohol, seek help
--- NOTE | 2020-04-20 14:12 | MHC.CM.PN ---
nurse rn critical care note juliocesar and kristine requested they re look at this patient and they both declined by the medical apparatus model maker, young martínez to follow but no bed availability, the following short term rehab facilities are [facility] AND [facility], [place], [facility] UNABLE TO ACCOMMODATE, [facility] B[facility] ,[facility], [facility], [facility] ,[facility] AND [facility] DECLINED DISCHARGE PLAN UNABLE TO SECURE ACUTE REHAB , TRYING TO SECURE SHORT TERM REHAB BOTH PHYSICAL AND OCCUPATIONAL THERAPY IS RECOMMENDING THIS AND NOTING AT THIS TIME IT IS UNSAFE FOR HIM TO GO HOME VIA ALL SCRIPT SENT THE FOLLOWING REFERRALS TO : [facility], [facility], [facility]
== END 2020-04-20 16:06 | disposition home or self-care (01) | DRG 282 ==
LOC: HO.ED 04-17 01:00 → HO.S3 04-17 01:48
PROVIDERS: Hospitalist; Nurse Practitioner Acute Care; Admitting Provider Internal Medicine; Emergency Provider Emergency Medicine Emergency Medical Services; Visit Provider Internal Medicine
DX: K85.20 Alcohol induced acute pancreatitis without necrosis or infection (principal); E87.6 Hypokalemia; Z20.828 Contact with and (suspected) exposure to other viral communicable diseases; F10.20 Alcohol dependence, uncomplicated; F17.210 Nicotine dependence, cigarettes, uncomplicated; Z71.6 Tobacco abuse counseling
CPT/HCPCS: 36415; 74177; 80048; 80051; 80076; 80320; 81001; 82310; 83690; 83735; 85025; 87635; 96361; 96374; 96375; 96376; 99284; 99285; J1170; J1650; J2270; J2405; Q9967

== ENCOUNTER 2021-11-24 10:28 | Inpatient (IN) | payer MEDICAID, SELFPAY ==
--- NOTE | ~2021-11-24 | CT_ITS ---
EXAMINATION: CT ABDOMEN AND PELVIS WITHOUT CONTRAST CLINICAL INFORMATION: Reason for Exam pt c hx of pancreatitis c recent etoh c abd pain COMPARISON: None. TECHNIQUE: Multidetector volumetric imaging was performed from the lung bases through the pubic symphysis. Sagittal and coronal reformatted images were obtained on the technologist workstation. This CT examination was performed using dose optimization techniques as appropriate, variously including the following: *Automated exposure control *Adjustment of mA and/or kV according to patient size (this includes techniques or standardized protocols for targeted exams where dose is matched to indication/reason for exam; i.e. extremities or head) *Use of iterative reconstruction technique FINDINGS: The lack of intravenous contrast limits evaluation of the solid visceral organs including the liver, spleen, pancreas, and kidneys. LUNG BASES: The visualized lung bases are unremarkable. LIVER, GALLBLADDER, AND BILIARY TREE: Liver is diffusely hypoattenuating relative to the spleen consistent with diffuse hepatic steatosis. Although this limits evaluation for focal liver lesions, none are seen. The gallbladder is unremarkable with no evidence of radiopaque gallstones, gallbladder wall thickening, or obvious pericholecystic inflammatory changes. PANCREAS: The distal pancreas is enlarged and low density with surrounding ill-defined fluid and fat stranding extending in the left anterior pararenal space consistent with acute interstitial pancreatitis. SPLEEN: Limited non-contrast evaluation is normal. ADRENAL GLANDS: Normal; no adrenal mass. KIDNEYS AND URETERS: Limited non-contrast evaluation is normal. No hydronephrosis, hydroureter, or calculi seen. No perinephric stranding. GASTROINTESTINAL TRACT: Small bowel and colon are non-dilated. No bowel wall thickening. No pericolonic inflammatory changes to suggest colitis or diverticulitis. ABDOMINAL WALL: No hernia seen. LYMPH NODES: No pathologically enlarged lymph nodes in the abdomen or pelvis. VASCULAR: Normal caliber abdominal aorta. BLADDER: Unremarkable. PELVIC VISCERA: Unremarkable. OSSEOUS STRUCTURES: No acute or suspicious osseous abnormalities. CT/CT abdomen pelvis wo con IMPRESSION: Edema of the distal pancreas with a adjacent peripancreatic fluid and fat stranding consistent with acute interstitial pancreatitis.
[2021-11-24 10:55] VITALS: BP 125/69; PULSE 81; RESP 16; TEMP 36.4; O2SAT 98; BMI 26.6
[2021-11-24 12:52] LABS: MANUAL DIFF FLAG NO
[2021-11-24 12:53] LABS: Basophils Percent Auto 0.2 % (0-2); Eosinophils Percent Auto 0.1 % (0-4); Hematocrit 39.2 % (42.0-52.0); Hemoglobin 13.5 g/dl (14.0-18.0); Imm Gran Abs Auto 0.05 X10*3/uL (0.00-0.03); Imm Gran Pct Auto 0.3 % (0.0-0.4); Lymphocytes Absolute Auto 1.2 X10*3/uL (1.2-4.9); Lymphocytes Percent Auto 7.2 % (20-40); Mean Corpuscular HGB Conc 34.4 g/dl (31.0-36.0); Mean Corpuscular Hemoglobin 32.7 pg (27.0-33.0); Mean Corpuscular Volume 94.9 fL (80.0-98.0); Mean Platelet Volume 8.9 fL (9.4-12.4); Monocytes Absolute Auto 0.8 X10*3/uL (0.1-1.2); Monocytes Percent Auto 4.8 % (2-11); Neutrophils Absolute Auto 15.1 x10*3/uL (2.0-8.3); Neutrophils Percent Auto 87.4 % (45-73); Platelet Count 325 X10*3/uL (160-400); Red Blood Count 4.13 X10*6/uL (4.60-5.80); Red Cell Distribution Width 12.7 % (11.0-16.0); White Blood Count 17.2 X10*3/uL (4.8-10.8)
[2021-11-24 13:13] LABS: Alanine Aminotransferase 22 U/L (0-40); Alkaline Phosphatase 90 U/L (39-117); Anion Gap 14 (12-20); Aspartate Amino Transferase 30 U/L (5-37); Bilirubin Direct 0.2 mg/dL (0.0-0.5); Bilirubin Total 0.6 mg/dL (0.0-1.0); Blood Urea Nitrogen 10 mg/dL (9-16); Calcium 9.7 mg/dL (8.4-10.2); Carbon Dioxide 26 mmol/L (22-29); Chloride 104 mmol/L (96-108); Creatinine Clr Calc Pharmacy 86.7; Estimated Glomerular Filt Rate > 60; Glucose Random 146 mg/dL (60-115); Potassium 3.8 mmol/L (3.3-5.1); Sodium 140 mmol/L (135-145); Total Protein 8.1 g/dL (6.5-8.0)
--- NOTE | 2021-11-24 19:07 | ED.ABDPAIN ---
HPI - Abdominal Pain General Chief Complaint: Abdominal Pain Stated Complaint: abd pain Time Seen by Provider: 11/24/21 18:51 Source: patient Mode of arrival: ambulatory Limitations: no limitations History of Present Illness HPI narrative: 36-year-old male who reports he had a past medical history of pancreatitis from drinking a few years ago reports he stopped drinking up until yesterday where he was binge drinking some kassi with some friends and this morning he woke up with severe nausea/vomiting with epigastric abdominal pain that is radiating to his back. He denies any fevers, chills, dizziness, headaches, neck pain/stiffness, trouble swallowing or breathing, chest pain or shortness of breath, black or bloody emesis, flank pain, dysuria, hematuria, abnormal penile discharge, black or bloody stools, recent travel or sick contacts, possible bad food exposure others with similar symptoms or any other symptoms complaints or concerns at this time. MD elicited complaint: abdominal pain Pertinent past history: other Onset (ago): hour(s) ([employer] ) Pain Consistency: constant Location: epigastric Severity: severe Pain scale (0-10): 10 Quality: aching and sharp Radiation: back Exacerbating factors: nothing Relieving factors: nothing Context: other (Recent ETOH intake) Associated symptoms: nausea and vomiting Related Data Home Medications Medication Instructions Recorded Confirmed No Known Home Meds 04/16/20 04/16/20 Allergies Allergy/AdvReac Type Severity Reaction Status Date / Time No Known Allergies Allergy Verified 11/24/21 10:54 [No Known Allergies*] Review of Systems Review of Systems Constitutional : No Fever, No Chills, No Night Sweats, No Fatigue, No Malaise Cardiovascular : No Chest Pain, No SOB Respiratory : No Cough, No Sputum, No Wheezing, No Dyspnea Gastrointestinal : + Nausea, + Vomiting, No Diarrhea, + abdominal Pain, No Hematochezia, No Melena Genitourinary : No irregular bleeding, No Dysuria, No Urinary Frequency, No Hematuria,No Urinary Incontinence, No Urgency, No Flank Pain Musculoskeletal : No joint pain, No Myalgias, No Joint Swelling Skin : No Skin Lesions, No rash Neuro : No Weakness, No Numbness, No Paresthesias, No Loss of Consciousness, No Dizziness, No Headache Heme/Lymph: No Lymphadenopathy Endocrine : No Temperature Intolerance Yes all other systems are reviewed and are negative [facility] Past Medical History Attestation statement: The following information was validated with the patient. Source: old records reviewed and nursing notes reviewed Medical History Pancreatitis Social History Social History Household Members: Family Housing: Apartment Do you presently have visiting nurse or other home services: No Alcohol intake: current Alcohol type: hard liquor Cigarettes Per Day: 10 Years Smoked: 15 Advance Directives: No Advance Directives Information Provided: Yes service: No Current occupational status: unemployed Physical Exam ED Vital Signs: Vital Signs - 24 hr 11/24/21 10:55 Temperature 97.5 F Pulse Rate 81 Respiratory Rate 16 Blood Pressure 125/69 Pulse Oximetry 98 Oxygen Delivery Method Room Air BMI result Body Mass Index 26.6 Vital signs have been reviewed and all within normal limits Appearance: Alert. Oriented X3. No acute distress. Head: Normal external exam. Normocephalic. Eyes: PERRLA. EOMI. Conjunctiva and sclera normal. Eyelids normal. ENT: Pharynx normal. Uvula midline. Moist mucous membranes. No trismus noted. No drooling noted. No muffled voice noted. Neck: Normal inspection. Neck supple. FROM. No adenopathy. No meningeal signs. CVS: Normal heart rate and rhythm. Heart sound normal. No murmurs noted. Pulses normal throughout. Respiratory: No respiratory distress. Painless inspiration. Breath sounds normal. No wheezes/rales/rhonchi noted. Chest nontender. No accessory muscle usage noted or decreased air movement noted. Abdomen: Soft and severe tenderness diffusely worse in the epigastric/left upper quadrant/right upper quadrant with guarding. No rigidity. Bowel sounds normal in all 4 quadrants. No distention noted. No organomegaly noted. No visible injury noted. No rebound tenderness. Negative Rovsing sign. Negative obturator's sign. Negative psoas sign. Negative Stock sign. Back: No CVA tenderness. Full range of motion noted. Skin: Skin warm and dry. Normal skin color. Normal skin turgor. No rashes/lesions/lacerations noted. Extremities: Extremities exhibit normal range of motion. Extremities nontender. Neuro: Oriented X 3. No motor deficit. No sensory deficit. Reflexes normal. Normal steady gait. CN's II-XII intact bilaterally? Course Course Course Narrative: 19pm - 36-year-old male who reports he had a past medical history of pancreatitis from drinking a few years ago reports he stopped drinking up until yesterday where he was binge drinking some kassi with some friends and this morning he woke up with severe nausea/vomiting with epigastric abdominal pain that is radiating to his back. Patient had labs all he was in the waiting room with an elevated white blood cell count at 17,000 mild anemia with an H&H of 13.5/39.2. Random glucose 146. Total protein 8.1. Otherwise all other labs were within normal limits. No lipase was added therefore LDH and lipase will be added at this time. Will also obtain a CT scan abdomen pelvis with IV contrast. Provide a L of IV fluids. 4 mg of Zofran and 4 mg of morphine and re-evaluate. Reevaluation(s) Reevaluation #1: - lipase 272. LDH 187. - CT scan abdomen pelvis without IV contrast revealed edema of the distal pancreas with adjacent peripancreatic fluid and fat stranding consistent with acute interstitial pancreatitis otherwise no other acute processes. Therefore at this time will admit benji Cordova. Patient understands agrees with this plan. Time: 20:16 [facility] - Abdominal Pain Medical Records Attestation: I reviewed the patient's medical records. Lab Data Attestation: I reviewed the patient's lab results. Result diagrams: 11/24/21 12:46 11/24/21 12:46 Labs: Lab Results 11/24/21 11/24/21 Range/Units 12:46 12:46 WBC 17.2 H (4.8-10.8) X10*3/uL RBC 4.13 L (4.60-5.80) X10*6/uL Hgb 13.5 L (14.0-18.0) g/dl Hct 39.2 L (42.0-52.0) % MCV 94.9 (80.0-98.0) fL MCH 32.7 (27.0-33.0) pg MCHC 34.4 (31.0-36.0) g/dl RDW 12.7 (11.0-16.0) % Plt Count 325 (160-400) X10*3/uL MPV 8.9 L (9.4-12.4) fL Immature Gran % (Auto) 0.3 (0.0-0.4) % Neut % (Auto) 87.4 H (45-73) % Lymph % (Auto) 7.2 L (20-40) % [place] % (Auto) 4.8 (2-11) % Eos % (Auto) 0.1 (0-4) % Baso % (Auto) 0.2 (0-2) % Lymph # (Auto) 1.2 (1.2-4.9) X10*3/uL [place] # (Auto) 0.8 (0.1-1.2) X10*3/uL Eos # (Auto) 0.0 (0.0-0.4) X10*3/uL Baso # (Auto) 0.0 (0.0-0.2) X10*3/uL Abs Immat Gran (auto) 0.05 H (0.00-0.03) X10*3/uL Absolute Neuts (auto) 15.1 H (2.0-8.3) x10*3/uL Absolute Nucleated RBC 0.000 (0.0-0.012) X10*3/uL Nucleated RBC % (auto) 0.0 (0.0-0.2) /100WBC Sodium 140 (135-145) mmol/L Potassium 3.8 (3.3-5.1) mmol/L Chloride 104 (96-108) mmol/L Carbon Dioxide 26 (22-29) mmol/L Anion Gap 14 (12-20) BUN 10 (9-16) mg/dL Creatinine 1.08 (0.5-1.4) mg/dL Estim Creat Clear Calc 86.7 Estimated GFR > 60 Random Glucose 146 H (60-115) mg/dL Calcium 9.7 D (8.4-10.2) mg/dL Total Bilirubin 0.6 (0.0-1.0) mg/dL Direct Bilirubin 0.2 (0.0-0.5) mg/dL AST 30 D (5-37) U/L ALT 22 (0-40) U/L Alkaline Phosphatase 90 (39-117) U/L Lactate Dehydrogenase 187 (118-273) U/L Total Protein 8.1 H D (6.5-8.0) g/dL Albumin 5.0 D (3.5-5.0) g/dL Lipase 272 H (8-78) U/L Imaging Data CT scan abdomen pelvis without IV contrast: Attestation: I personally reviewed and interpreted this imaging study as follows: Radiologist's impression: FINDINGS: The lack of intravenous contrast limits evaluation of the solid visceral organs including the liver, spleen, pancreas, and kidneys. LUNG BASES: The visualized lung bases are unremarkable.? LIVER, GALLBLADDER, AND BILIARY TREE: Liver is diffusely hypoattenuating relative to the spleen consistent with diffuse hepatic steatosis.? Although this limits evaluation for focal liver lesions, none are seen. The gallbladder is unremarkable with no evidence of radiopaque gallstones, gallbladder wall thickening, or obvious pericholecystic inflammatory changes.? PANCREAS: The distal pancreas is enlarged and low density with surrounding ill-defined fluid and fat stranding extending in the left anterior pararenal space consistent with acute interstitial pancreatitis.? SPLEEN: Limited non-contrast evaluation is normal. ? ADRENAL GLANDS: Normal; no adrenal mass.? KIDNEYS AND URETERS: Limited non-contrast evaluation is normal. No hydronephrosis, hydroureter, or calculi seen. No perinephric stranding. ? GASTROINTESTINAL TRACT: Small bowel and colon are non-dilated.? No bowel wall thickening.? No pericolonic inflammatory changes to suggest colitis or diverticulitis.? ABDOMINAL WALL: No hernia seen.? LYMPH NODES: No pathologically enlarged lymph nodes in the abdomen or pelvis. VASCULAR: Normal caliber abdominal aorta. BLADDER: Unremarkable.? PELVIC VISCERA: Unremarkable.? OSSEOUS STRUCTURES: No acute or suspicious osseous abnormalities.? CT/CT abdomen pelvis wo con IMPRESSION: Edema of the distal pancreas with a adjacent peripancreatic fluid and fat stranding consistent with acute interstitial pancreatitis. ? Critical Care Time Critical Care Time Critical Care Time: Yes Total Critical Care Time: 60 Attestation: I personally attest to this time spent taking care of the patient Discharge Plan Discharge Clinical Impression: Pancreatitis Patient Disposition: Admitted As Inpatient Prescriptions: No Action No Known Home Meds
[2021-11-24 19:26] LABS: Lactate Dehydrogenase 187 U/L (118-273); Lipase 272 U/L (8-78)
[2021-11-24 20:32] LABS: Triglycerides 296 mg/dL
[2021-11-24] MEDS: ondansetron HCL 4 MG/2 ML VIAL IVPUSH (20:35)
[2021-11-24] MEDS: Morphine Sulfate 4 MG/ML CARTRIDGE IVPUSH ×2 (20:36→23:42)
[2021-11-24 21:05] LABS: COVID-19 Test Negative (Negative)
--- NOTE | 2021-11-24 22:03 | PM.IMHP ---
History of Present Illness Date of Service: 11/24/21 Chief Complaint: epigastric pain 36-year-old male with past medical history of alcohol use disorder presents the hospital with complaints of epigastric pain. Patient reports that he used to drink daily but has not drank that much for a while but he went on a binge drink last night as well as consuming cocaine. Patient reports epigastric 10/10 pain radiating to the back, associated with nausea and vomiting, no diarrhea constipation, no urinary symptoms and no lower extremity edema. Patient reports no urinary symptoms and no lower extremity edema On arrival to the ED patient hemodynamically stable with no significant abnormal lateral Labs are significant for WBC count of 17.2, hemoglobin of 13.5, hematocrit of 39.2, lipase of 272, triglycerides of 296, CT abdomen shows acute pancreatitis Patient will be admitted for further management Review of Systems Review of Systems: Yes all other systems are reviewed and are negative [facility] Medical History Pancreatitis Family History (Updated 11/24/21 @ 22:22 by David Cordova MD) Other No family history of coronary artery disease Surgical History (Updated 11/24/21 @ 22:22 by David Cordova MD) No pertinent past surgical history Social History Household Members: Family Housing: Apartment Do you presently have visiting nurse or other home services: No Alcohol intake: current Alcohol type: hard liquor Cigarettes Per Day: 10 Years Smoked: 15 Advance Directives: No Advance Directives Information Provided: Yes service: No Current occupational status: unemployed Meds Allergies Allergy/AdvReac Type Severity Reaction Status Date / Time No Known Allergies Allergy Verified 11/24/21 10:54 [No Known Allergies*] Active Medications: Current Medications Acetaminophen (Acetaminophen 325 Mg Tablet) 650 mg PO Q6H PRN PRN Reason: Pain, Mild (Pain Scale 1-3) Docusate Sodium (Docusate Sodium 100 Mg Capsule) 100 mg PO DAILY PRN PRN Reason: Constipation Enoxaparin Sodium (Enoxaparin Sodium 40 Mg/0.4 Ml Syringe) 40 mg SUBCUT Q24H NICKOLAS Morphine Sulfate (Morphine Sulfate 4 Mg/Ml Cartridge) 4 mg IVPUSH Q4H PRN; Protocol PRN Reason: Pain, Severe (Pain Scale 7-10) Ondansetron HCl (Ondansetron Hcl 4 Mg/2 Ml Vial) 4 mg IVPUSH Q8H PRN PRN Reason: Nausea and Vomiting Pharmacy Consult (Consult Rx Perform Med Rec) 1 each MISCELLANE ONCE PRN PRN Reason: Consult order Sodium Chloride (0.9 % Sodium Chloride Flush 3 Ml Syringe) [facility] Home Medications Medication Instructions Recorded Confirmed Last Taken Type No Known Home Meds 04/16/20 04/16/20 Unknown History Physical Exam Vital Signs and Narrative: Vital Signs: Last Vital Signs Temp 97.5 F 11/24/21 10:55 Pulse 81 11/24/21 10:55 Resp 16 11/24/21 10:55 BP 125/69 11/24/21 10:55 Pulse Ox 98 11/24/21 10:55 O2 Del Method 11/24/21 10:55 BMI result Body Mass Index 26.6 Const: General: cooperative and no acute distress Orientation/consciousness: patient oriented x3 Eyes: General: appearance normal, both eyes and all related structures Pupils: Equal, round and reactive pupils present Resp: Effort & Inspection: normal respiratory effort Auscultation: clear to auscultation bilaterally Cardio: Rate: regular rate Rhythm: regular rhythm GI: Other: Abdomen is soft, epigastric tenderness with no rebound or guarding Palpation (GI): Soft to palpation Auscultation: normal bowel sounds Skin: General skin exam: no rashes or lesions noted Neuro: General: patient oriented x3 Cranial nerves: Yes Equal, round and reactive pupils present Cognition (Neuro): normal cognition Extrem: General: Yes normal to inspection and Yes no pedal edema Results Labs CBC and Chem 7: 11/24/21 12:46 11/24/21 12:46 Labs: Laboratory Results - last 24 hr 11/24/21 11/24/21 11/24/21 12:46 12:46 20:41 MCV 94.9 MCH 32.7 MCHC 34.4 RDW 12.7 Plt Count 325 MPV 8.9 L Immature Gran % (Auto) 0.3 Neut % (Auto) 87.4 H Lymph % (Auto) 7.2 L [place] % (Auto) 4.8 Eos % (Auto) 0.1 Baso % (Auto) 0.2 Lymph # (Auto) 1.2 [place] # (Auto) 0.8 Eos # (Auto) 0.0 Baso # (Auto) 0.0 Abs Immat Gran (auto) 0.05 H Absolute Neuts (auto) 15.1 H Absolute Nucleated RBC 0.000 Nucleated RBC % (auto) 0.0 Anion Gap 14 Estim Creat Clear Calc 86.7 Estimated GFR > 60 Random Glucose 146 H Calcium 9.7 D Total Bilirubin 0.6 Direct Bilirubin 0.2 AST 30 D ALT 22 Alkaline Phosphatase 90 Lactate Dehydrogenase 187 Total Protein 8.1 H D Albumin 5.0 D Triglycerides 296 Lipase 272 H COVID-19 ([facility]ETH) Negative COVID-19 Clin Com See Note Imaging Radiologist's Impressions: Impressions Abdomen/Pelvis CT 11/24/21 19:45 IMPRESSION: Edema of the distal pancreas with a adjacent peripancreatic fluid and fat stranding consistent with acute interstitial pancreatitis. Assessment and Plan (1) Pancreatitis: Status: Acute Plan 36-year-old male who presents to the hospital after a night of binge drinking and cocaine abuse presents to the hospital with abdominal pain found to have acute pancreatitis # acute pancreatitis - secondary to alcohol abuse - no elevated triglycerides, no evidence of gallstone pancreatitis - will treat with fluids - pain control # alcohol use - reports that he has a remote history of alcohol abuse but now drinks 1 or twice a week with no history of withdrawals - will monitor DVT prophylaxis: Early ambulation Given the acute pancreatitis and need for IV fluid patient will be admitted further management will require a minimum 2 night hospital stay Quality Stroke Does the patient have a stroke diagnosis?: No VTE Prior VTE?: No VTE Risk Level:: Medical - moderate - high VTE Device Contraindication: Treatment Not Indicated VTE Drug Contraindication: N/A - Med Ordered
[2021-11-24] MEDS: Enoxaparin Sodium 40 MG/0.4 ML SYRINGE SUBCUT (23:40)
[2021-11-25 01:09] VITALS: BP 164/99; PULSE 65; RESP 18; O2SAT 99
[2021-11-25] MEDS: Morphine Sulfate 4 MG/ML CARTRIDGE IVPUSH ×5 (03:11→21:12)
[2021-11-25 04:48] LABS: MANUAL DIFF FLAG NO
[2021-11-25 04:50] LABS: Basophils Percent Auto 0.1 % (0-2); Hematocrit 39.6 % (42.0-52.0); Hemoglobin 13.4 g/dl (14.0-18.0); Imm Gran Abs Auto 0.05 X10*3/uL (0.00-0.03); Imm Gran Pct Auto 0.3 % (0.0-0.4); Lymphocytes Absolute Auto 2.2 X10*3/uL (1.2-4.9); Lymphocytes Percent Auto 12.9 % (20-40); Mean Corpuscular HGB Conc 33.8 g/dl (31.0-36.0); Mean Corpuscular Volume 94.5 fL (80.0-98.0); Mean Platelet Volume 9.4 fL (9.4-12.4); Monocytes Absolute Auto 1.1 X10*3/uL (0.1-1.2); Monocytes Percent Auto 6.3 % (2-11); Neutrophils Absolute Auto 13.8 x10*3/uL (2.0-8.3); Neutrophils Percent Auto 80.4 % (45-73); Platelet Count 312 X10*3/uL (160-400); Red Blood Count 4.19 X10*6/uL (4.60-5.80); Red Cell Distribution Width 12.7 % (11.0-16.0); White Blood Count 17.2 X10*3/uL (4.8-10.8)
[2021-11-25 05:08] LABS: Anion Gap 14 (12-20); Blood Urea Nitrogen 11 mg/dL (9-16); Calcium 8.8 mg/dL (8.4-10.2); Carbon Dioxide 24 mmol/L (22-29); Chloride 104 mmol/L (96-108); Creatinine Clr Calc Pharmacy 90.9; Estimated Glomerular Filt Rate > 60; Glucose Random 126 mg/dL (60-115); Potassium 3.6 mmol/L (3.3-5.1); Sodium 138 mmol/L (135-145)
--- NOTE | 2021-11-25 05:40 | PC.NURSE ---
I assumed nursing care of Adiel at 1900. He presented to the ED for evaluation of severe abdominal pain after relapsing from 2 years of no alcohol intake. He states I screwed up. It's not worth it. Adiel complains of moderate mid-abdominal pain with radiation into his back, severe at times with a little bit of nausea. NO vomiting. He denies chest pain. Afebrile. Respirations non-labored, room air sat's WNL, RR WNL, he speaks in full sentences. he ambulates independently and with steady gait. Adiel was moved from bed 5 into all and eventually into bed 7 where he has remained for the duration of the night, occasionally ringing call nicholas to request medicine for the abdominal pain. He is resting quietly and we will continue to monitor him.
[2021-11-25 07:52] VITALS: BP 142/100; PULSE 72; RESP 18; O2SAT 98
[2021-11-25] MEDS: 0.9 % Sodium Chloride Flush 3 ML SYRINGE IVFLUSH (07:54)
[2021-11-25] MEDS: Famotidine/PF 20 MG/2 ML VIAL IVPUSH ×2 (08:05→21:13)
[2021-11-25] MEDS: Lactated Ringers 1,000 ML 200 ML IVCONT ×3 (08:06→19:14)
--- NOTE | 2021-11-25 08:44 | PHA.MEDREC ---
Pharmacy Consult ? Medication Reconciliation Pharmacy has completed the medication reconciliation. Spoke with patient in the ED. patient is not taking any medications/OTC products
--- NOTE | 2021-11-25 12:04 | P.PNIM_ITS ---
Subjective Subjective Date of Service: 11/25/21 Interval History: seen and examined still with pain unchanged rpeorts sobriety for 2 years, went on a binge last few days Review of Systems negative except above Physical Exam Vital Signs: Vital Signs: Last Vital Signs Temp 97.5 F 11/24/21 10:55 Pulse 72 11/25/21 07:52 Resp 18 11/25/21 07:52 BP 142/100 H 11/25/21 07:52 Pulse Ox 98 11/25/21 07:52 O2 Del Method 11/25/21 07:52 BMI result Body Mass Index 26.6 Const: Other: General - no acute distress, appears comfortable Cardiovascular - regular rate and rhythm, S1-S2 Lungs - normal respiratory effort, clear to auscultation bilaterally, no wheezing Abdomen - diffuse abdominal tenderness Extremities - no edema bilaterally Neuro - awake and alert, no focal deficits Objective Data Active Medications Acetaminophen (Acetaminophen 325 Mg Tablet) 650 mg PO Q6H PRN PRN Reason: Pain, Mild (Pain Scale 1-3) Docusate Sodium (Docusate Sodium 100 Mg Capsule) 100 mg PO DAILY PRN PRN Reason: Constipation Enoxaparin Sodium (Enoxaparin Sodium 40 Mg/0.4 Ml Syringe) 40 mg SUBCUT Q24H [facility] Last Admin: 11/24/21 23:40 Dose: 40 mg Documented By: BENITO Famotidine (Famotidine/Pf 20 Mg/2 Ml Vial) 20 mg IVPUSH BID [facility] Last Admin: 11/25/21 08:05 Dose: 20 mg Documented By: LIDA Lactated Ringer's (Lr) 1,000 mls @ 200 mls/hr IVCONT .Q5H [facility] Last Admin: 11/25/21 08:06 Dose: 200 mls/hr Documented By: LIDA Morphine Sulfate (Morphine Sulfate 4 Mg/Ml Cartridge) 4 mg IVPUSH Q4H PRN; Protocol PRN Reason: Pain, Severe (Pain Scale 7-10) Last Admin: 11/25/21 08:09 Dose: 4 mg Documented By: LIDA Ondansetron HCl (Ondansetron Hcl 4 Mg/2 Ml Vial) 4 mg IVPUSH Q8H PRN PRN Reason: Nausea and Vomiting Pharmacy Consult (Consult Rx Perform Med Rec) 1 each MISCELLANE ONCE PRN PRN Reason: Consult order Sodium Chloride (0.9 % Sodium Chloride Flush 3 Ml Syringe) 3 ml IVFLUSH QSHIFT [facility] Last Admin: 11/25/21 07:54 Dose: 3 ml Documented By: LIDA Labs CBC & Chem 7: 11/25/21 04:30 11/25/21 04:30 Labs: Laboratory Results - last 24 hr 11/24/21 11/24/21 11/24/21 12:46 12:46 20:41 MCV 94.9 MCH 32.7 MCHC 34.4 RDW 12.7 Plt Count 325 MPV 8.9 L Immature Gran % (Auto) 0.3 Neut % (Auto) 87.4 H Lymph % (Auto) 7.2 L [place] % (Auto) 4.8 Eos % (Auto) 0.1 Baso % (Auto) 0.2 Lymph # (Auto) 1.2 [place] # (Auto) 0.8 Eos # (Auto) 0.0 Baso # (Auto) 0.0 Abs Immat Gran (auto) 0.05 H Absolute Neuts (auto) 15.1 H Absolute Nucleated RBC 0.000 Nucleated RBC % (auto) 0.0 Anion Gap 14 Estim Creat Clear Calc 86.7 Estimated GFR > 60 Random Glucose 146 H Calcium 9.7 D Total Bilirubin 0.6 Direct Bilirubin 0.2 AST 30 D ALT 22 Alkaline Phosphatase 90 Lactate Dehydrogenase 187 Total Protein 8.1 H D Albumin 5.0 D Triglycerides 296 Lipase 272 H COVID-19 ([facility]) Negative COVID-19 Clin Com See Note 11/25/21 11/25/21 04:30 04:30 MCV 94.5 MCH 32.0 MCHC 33.8 RDW 12.7 Plt Count 312 MPV 9.4 Immature Gran % (Auto) 0.3 Neut % (Auto) 80.4 H Lymph % (Auto) 12.9 L [place] % (Auto) 6.3 Eos % (Auto) 0.0 Baso % (Auto) 0.1 Lymph # (Auto) 2.2 [place] # (Auto) 1.1 Eos # (Auto) 0.0 Baso # (Auto) 0.0 Abs Immat Gran (auto) 0.05 H Absolute Neuts (auto) 13.8 H Absolute Nucleated RBC 0.000 Nucleated RBC % (auto) 0.0 Anion Gap 14 Estim Creat Clear Calc 90.9 Estimated GFR > 60 Random Glucose 126 H Calcium 8.8 D Total Bilirubin Direct Bilirubin AST ALT Alkaline Phosphatase Lactate Dehydrogenase Total Protein Albumin Triglycerides Lipase COVID-19 ([facility]) COVID-19 Clin Com Assessment and Plan (1) Pancreatitis: Status: Acute Plan 36-year-old male who presents to the hospital after a night of binge drinking and cocaine abuse presents to the hospital with abdominal pain found to have ac [place] pancreatitis # acute pancreatitis #alcohol gastritsi continue IVF add IV pepcid continue IV analgesics clear liquids # alcohol use - reports that he has a remote history of alcohol abuse but now drinks 1 or twice a week with no history of withdrawals - will monitor DVT prophylaxis: Early ambulation patient with persistent pain reuquiring frequent IV analgesics (every 4 hours). this cannot be managed in an outpatient / observation setting. he is requiring too frequent administratin of pain meds and assessments Quality Stroke Does the patient have a stroke diagnosis?: No VTE Prior VTE?: No VTE Risk Level:: Medical - moderate - high VTE Device Contraindication: Treatment Not Indicated VTE Drug Contraindication: N/A - Med Ordered
--- NOTE | 2021-11-25 15:14 | MHC.CM.PN ---
PT REPORTS HE LIVES WITH HIS FATHER AND IS INDEPENDENT WITH CARE PT DENIES USE OF DME OR HOME SERVICES PT REPORTS HE IS COVID VAX PT SAYS HE DOES NOT HAVE A PCP BUT GOES TO [facility] WHEN NEEDED HE DOES NOT HAVE A HCP AND DECLINES TO COMPLETE ONE TODAY CURRENT DC PLAN IS HOME WITH NO SERVICES PT REPORTS HE WILL ARRANGE A RIDE AT DC
[2021-11-25 16:00] VITALS: BP 154/98; PULSE 72; RESP 18; TEMP 36.6; O2SAT 98
[2021-11-25 17:07] VITALS: BP 142/89; PULSE 83; RESP 18
[2021-11-25 19:08] VITALS: BP 139/94; PULSE 75; RESP 18; TEMP 37; O2SAT 98
[2021-11-25] MEDS: Enoxaparin Sodium 40 MG/0.4 ML SYRINGE SUBCUT (21:14)
[2021-11-25] MEDS: Acetaminophen 325 MG TABLET 650 MG PO (22:27)
[2021-11-25 23:23] VITALS: BP 139/92; PULSE 74; RESP 16; TEMP 36.7; O2SAT 98
[2021-11-26] VITALS (9 sets, daily range): BP systolic 124–140; BP diastolic 68–96; PULSE 67–82; RESP 16–18; TEMP 35.8–36.7; O2SAT 96–98
[2021-11-26] MEDS: Lactated Ringers 1,000 ML 200 ML IVCONT ×2 (00:29→07:43)
[2021-11-26] MEDS: Morphine Sulfate 4 MG/ML CARTRIDGE IVPUSH ×4 (01:09→13:53)
[2021-11-26 06:15] LABS: Appearance Urine CLEAR; Color Urine YELLOW; Glucose Urine UA NEG (NEG); Leukocyte Esterase Urine NEG (NEG); Nitrite Urine NEG (NEG); PH 7.5 (5.0-8.0); Specific Gravity - Urine 1.015 (1.005-1.025); UACC Culture Trigger NO; Urine Blood 1+ (NEG); Urine Ketones NEG (NEG); Urine Protein NEG (NEG-TRACE)
[2021-11-26 06:21] LABS: Bacteria Urine 1+ /LPF; Squamous Epithelial Cell Urine 1+ /LPF
[2021-11-26] MEDS: Famotidine/PF 20 MG/2 ML VIAL IVPUSH ×2 (07:42→20:49)
--- NOTE | 2021-11-26 08:21 | P.PNIM_ITS ---
Subjective Subjective Date of Service: 11/26/21 Interval History: seen and examined still with pain unchanged rpeorts sobriety for 2 years, went on a binge last few days Review of Systems negative except above Physical Exam Vital Signs: Vital Signs: Last Vital Signs Temp 98.1 F 11/26/21 07:57 Pulse 67 11/26/21 07:57 Resp 17 11/26/21 07:57 BP 140/96 H 11/26/21 07:57 Pulse Ox 97 11/26/21 07:57 O2 Del Method 11/26/21 07:57 BMI result Body Mass Index 26.6 Const: Other: General - no acute distress, appears comfortable Cardiovascular - regular rate and rhythm, S1-S2 Lungs - normal respiratory effort, clear to auscultation bilaterally, no wheezing Abdomen - diffuse abdominal tenderness but less compared to yesterday, no rebound or guarding Extremities - no edema bilaterally Neuro - awake and alert, no focal deficits Objective Data Active Medications Acetaminophen (Acetaminophen 325 Mg Tablet) 650 mg PO Q6H PRN PRN Reason: Pain, Mild (Pain Scale 1-3) Last Admin: 11/25/21 22:27 Dose: 650 mg Documented By: SHALINI Docusate Sodium (Docusate Sodium 100 Mg Capsule) 100 mg PO DAILY PRN PRN Reason: Constipation Enoxaparin Sodium (Enoxaparin Sodium 40 Mg/0.4 Ml Syringe) 40 mg SUBCUT Q24H [facility] Last Admin: 11/25/21 21:14 Dose: 40 mg Documented By: SHALINI Famotidine (Famotidine/Pf 20 Mg/2 Ml Vial) 20 mg IVPUSH BID [facility] Last Admin: 11/26/21 07:42 Dose: 20 mg Documented By: SHEREEN Lactated Ringer's (Lr) 1,000 mls @ 200 mls/hr IVCONT .Q5H [facility] Last Admin: 11/26/21 07:43 Dose: 200 mls/hr Documented By: SHEREEN Morphine Sulfate (Morphine Sulfate 4 Mg/Ml Cartridge) 4 mg IVPUSH Q4H PRN; Protocol PRN Reason: Pain, Severe (Pain Scale 7-10) Last Admin: 11/26/21 05:11 Dose: 4 mg Documented By: ALEXANDRE Ondansetron HCl (Ondansetron Hcl 4 Mg/2 Ml Vial) 4 mg IVPUSH Q8H PRN PRN Reason: Nausea and Vomiting Pharmacy Consult (Consult Rx Perform Med Rec) 1 each MISCELLANE ONCE PRN PRN Reason: Consult order Sodium Chloride (0.9 % Sodium Chloride Flush 3 Ml Syringe) 3 ml IVFLUSH QSHIFT [facility] Last Admin: 11/26/21 07:43 Dose: Not Given Documented By: SHEREEN Non-Admin Reason: IV Running Labs CBC & Chem 7: 11/25/21 04:30 11/25/21 04:30 Labs: Laboratory Results - last 24 hr 11/26/21 05:57 Urine Color YELLOW Urine Appearance CLEAR Urine pH 7.5 Ur Specific [place] 1.015 Urine Protein NEG Urine Glucose (UA) NEG Urine Ketones NEG Urine Blood 1+ H Urine Nitrite NEG Ur Leukocyte Esterase NEG Urine RBC 1-4 Urine WBC 1-4 Ur Squamous Epith Cells 1+ Urine Bacteria 1+ Assessment and Plan (1) Pancreatitis: Status: Acute Plan 36-year-old male who presents to the hospital after a night of binge drinking and cocaine abuse presents to the hospital with abdominal pain found to have acute pancreatitis # acute pancreatitis #alcohol gastritis clinically improving, advance to full liquids today continue IVF pepcid continue IV analgesics # alcohol use - reports that he has a remote history of alcohol abuse but now drinks 1 or twice a week with no history of withdrawals - will monitor DVT prophylaxis: Early ambulation Patient requires continued hospitalization due to acute pancreatitis. He is still getting high dose IVF and frequent IV analgesics (6 times in a 24 hours span). Quality Stroke Does the patient have a stroke diagnosis?: No VTE Prior VTE?: No VTE Risk Level:: Medical - moderate - high VTE Device Contraindication: Treatment Not Indicated VTE Drug Contraindication: N/A - Med Ordered
--- NOTE | 2021-11-26 12:39 | MHC.CM.PN ---
Per rounds, no d/c today possibly tomorrow. Case Management will continue to follow for discharge planning needs.
[2021-11-26] MEDS: Lactated Ringers 1,000 ML 125 ML IVCONT (13:53)
[2021-11-26] MEDS: Acetaminophen 325 MG TABLET 650 MG PO (18:32)
[2021-11-26] MEDS: Docusate Sodium 100 MG CAPSULE PO (18:32)
[2021-11-26] MEDS: Enoxaparin Sodium 40 MG/0.4 ML SYRINGE SUBCUT (20:49)
[2021-11-27] VITALS: BP 136/87; PULSE 63; RESP 17; TEMP 36.2; O2SAT 98
[2021-11-27] MEDS: Lactated Ringers 1,000 ML 125 ML IVCONT (02:57)
[2021-11-27 04:00] VITALS: BP 151/85; PULSE 56; RESP 17; TEMP 36.1; O2SAT 96
[2021-11-27] MEDS: Acetaminophen 325 MG TABLET 650 MG PO (05:29)
[2021-11-27 07:34] VITALS: BP 147/95; PULSE 63; RESP 18; TEMP 36.6; O2SAT 97
[2021-11-27] MEDS: Famotidine/PF 20 MG/2 ML VIAL IVPUSH (08:26)
--- NOTE | 2021-11-27 08:30 | PM.DS ---
DS: Providers Provider Date of Service: 11/27/21 Date of admission: 11/24/21 20:30 Primary care physician: [facility] DS: Diagnosis Discharge Diagnosis (1) Pancreatitis: Status: Acute (2) Alcohol abuse: Status: Acute DS: Summary Hospital Course Hospital Course: HPI From admission H&P: 36-year-old male with past medical history of alcohol use disorder presents the hospital with complaints of epigastric pain.? Patient reports that he used to drink daily but has not drank that much for a while but he went on a binge drink last night as well as consuming cocaine.? Patient reports epigastric 10/10 pain radiating to the back, associated with nausea and vomiting, no diarrhea constipation, no urinary symptoms and no lower extremity edema.? Patient reports no urinary symptoms and no lower extremity edema On arrival to the ED patient hemodynamically stable with no significant abnormal lateral Labs are significant for WBC count of 17.2, hemoglobin of 13.5, hematocrit of 39.2, lipase of 272, triglycerides of 296, CT abdomen shows acute pancreatitis Patient will be admitted for further management Hospital Course: Patient was started on aggressive intravenous fluid resuscitation and was treated with IV analgesics. He was also treated with IV Pepcid for suspected alcohol-induced gastritis. Over the course of his hospitalization, his pain resolved and his diet was advanced to solids. Patient was advised complete cessation of alcohol. He was offered care team consultation for help with alcohol abuse, however he declined. Time Spent with Patient Time attestation: Total time spent providing and/or coordinating discharge services: Discharge coordination time: Greater than 30 minutes Quality: Safe Use of Opioids Does Pt have an Active Cancer Diagnosis on the Problem List?: No Quality: Stroke Does the patient have a stroke diagnosis?: No Physical Exam Vital Signs: Vital Signs: Last Vital Signs Temp 97.9 F 11/27/21 07:34 Pulse 63 11/27/21 07:34 Resp 18 11/27/21 07:34 BP 147/95 H 11/27/21 07:34 Pulse Ox 97 11/27/21 07:34 O2 Del Method 11/27/21 07:34 BMI result Body Mass Index 26.6 Const: Other: General - no acute distress, appears comfortable Cardiovascular - regular rate and rhythm, S1-S2 Lungs - normal respiratory effort, clear to auscultation bilaterally, no wheezing Abdomen - soft, nontender, no rebound or guarding Extremities - no edema bilaterally Neuro - awake and alert, no focal deficits Discharge Plan Discharge Patient Disposition: Home, Self-Care Discharge Diagnosis: Alcoholic pancreatitis Referrals: [place] [Primary Care Provider] - 1 Week Discharge Medications: Continued No Known Home Meds Discharge Orders: Discharge Order (Routine); Ordered 11/27/21 Ordered By: Andrey Carey Diet: Advance to usual diet Activity on Discharge: As tolerated Stand Alone Forms: Patient Portal Discharge page Care Plan Goals: To stay healthy and out of the hospital. Health Concerns: Alcohol abuse and alcohol induced pancreatitis Plan of Treatment: Do not drink alcohol. Drink plenty of water. If you have worsening pain or are unable to eat, please return to the emergency room. Assessment: See discharge summary
--- NOTE | 2021-11-27 08:38 | MHC.CM.PN ---
Patient has been medically cleared for dc to home today, self care.
== END 2021-11-27 09:35 | disposition home or self-care (01) | DRG 282 ==
LOC: HO.ED 20:19 → HO.EDOVER 20:37 → HO.S3 11-25 10:38
PROVIDERS: Physician Assistant Medical; Admitting Provider Internal Medicine; Emergency Provider Emergency Medicine; Visit Provider Family Medicine
DX: K85.20 Alcohol induced acute pancreatitis without necrosis or infection (principal); F10.10 Alcohol abuse, uncomplicated; Z20.822 Contact with and (suspected) exposure to COVID-19; Z56.0 Unemployment, unspecified
CPT/HCPCS: 36415; 74176; 80048; 80076; 81001; 83615; 83690; 84478; 85025; 87635; 96374; 96375; 99218; 99285; J1650; J2270; J2405